=== PATIENT | male | born 1965 | race Caucasian/White ===

== ENCOUNTER 2019-03-16 10:39 | Inpatient (IN) | payer OTHER ==
[2019-03-16] MEDS ORDERED: ROCURONIUM BROMIDE 50 MG/5 ML SYRINGE ONE (12:48)
[2019-03-16] MEDS ORDERED: fentaNYL CITRATE 250 MCG/5 ML VIAL ONE (12:48)
[2019-03-16] MEDS ORDERED: PROPOFOL 20 ML ONE ×22 (12:48→19:04)
[2019-03-16] MEDS ORDERED: SUCCINYLCHOLINE CHLORIDE 200 MG/10 ML SYRINGE ONE (12:48)
[2019-03-16] MEDS ORDERED: ONDANSETRON 4 MG/2 ML VIAL ONE (12:49)
[2019-03-16] MEDS ORDERED: DEXAMETHASONE SOD PHOSPHATE 4 MG/1 ML VIAL ONE (12:49)
[2019-03-16] MEDS ORDERED: LIDOCAINE HCL/PF 2% SDV 5ML VIAL ONE (12:49)
[2019-03-16] MEDS ORDERED: HEPARIN NA (PORCINE) 5,000 UNITS/ML 1ML VIAL ONE (13:17)
[2019-03-16] MEDS ORDERED: BENZOIN TINCTURE SWABSTICK TP ONE (13:17)
[2019-03-16] MEDS ORDERED: THROMBIN (BOVINE) 5,000 UNIT VIAL TP ONE ×2 (13:18→15:48)
[2019-03-16] MEDS ORDERED: BUPIVACAINE LIPOSOME/PF (EXPAREL) 266 MG/20 ML VIAL ONE (13:22)
[2019-03-16] MEDS ORDERED: BUPIVACAINE HCL/PF 0.5% (5MG/ML) 10 ML VIAL ONE (13:22)
[2019-03-16] MEDS ORDERED: MIDAZOLAM HCL 2 MG/2 ML SINGLE DOSE VIAL ONE ×2 (13:23)
[2019-03-16] MEDS ORDERED: VANCOMYCIN 1,000 MG VIAL (RESTRICTED TO ID ONLY) IVPB ONE (14:05)
[2019-03-16] MEDS ORDERED: morphine SULFATE/PF 0.5 MG/ML (2cc Syringe - QUVA) ONE (14:16)
[2019-03-16] MEDS ORDERED: ceFAZolin SODIUM 1 GM VIAL IVPB ONE ×2 (14:50→18:40)
[2019-03-16] MEDS ORDERED: VANCOMYCIN 1,000 MG VIAL (RESTRICTED TO ID ONLY) ONE (14:57)
[2019-03-16] MEDS ORDERED: TRANEXAMIC ACID 1000 MG/10 ML VIAL ONE ×2 (14:57→18:35)
[2019-03-16] MEDS ORDERED: ceFAZolin SODIUM 1 GM VIAL ONE ×3 (14:57→20:03)
--- NOTE | 2019-03-16 15:11 | PN ---
Progress Note (short form) - Note Progress Note: 53M POD #0 s/p: 1. L1, L2, L3, L4, L5, S1 laminectomies 2. L1, L2, L3, L4, L5, S1 osteotomies (facetectomies) 3. T12-S1 posterior instrumentation 4. T12-S1 posterolateral arthrodesis 5. L5-S1 PLIF 6. Complex Durotomy repair 7. Bone allograft 8. Bone autograft 9. Bone marrow aspiration 10. Complex wound closure (30cm) -Admit to ICU post-op. -Bedrest w/head of bed flat x 48 hrs. post-op. -Pain control: per anesthesia team; NO NSAID's. -DVT PPx: -Mechanical only: SHERRY's, SCD's. -Chemical: None. -Incentive spirometry q15 min. -NPO until flatus. -Shah care. -Post-op Ancef x 3 doses. -No bending, lifting (>5 lbs), or twisting for 9-12 months. -Care per ICU & medical hospitalist Dr. Conner. -Discharge planning: f/u 7-10 days after discharge at [facility]; call for appointment; . -Will follow. Shaggy Tripp MD (Orthopaedic Surgery).
--- NOTE | 2019-03-16 15:14 | OP ---
Operative Note - Note: Operative Date: 03/16/19 Pre-Operative Diagnosis: Severity of illness: 3. 1. L1-S1 intervertebral disc disorders with radiculopathy. 2. L1-S1 spinal stenosis with neurogenic claudication. 3. Multi-level axial instability lumbar spine Operation: 1. L1, L2, L3, L4, L5, S1 laminectomies. 2. L1, L2, L3, L4, L5, S1 osteotomies (facetectomies). 3. L1-S1 posterior instrumentation. 4. T12-S1 posterolateral arthrodesis. 5. Durotomy repair. 6. Bone allograft. 7. Bone autograft. 8. Bone marrow aspiration. 9. Complex wound closure (30cm) Post-Operative Diagnosis: Same as Pre-op Surgeon: Shaggy Tripp Regrinder Operator: Maicol Tripp Anesthesiologist/EXPLOSIVE SPECIALIST: Estefania Leonard Anesthesia: General Specimens Removed: L1-L2, L3-L4, L5-S1 discs Estimated Blood Loss (mls): 1,030 Drains & Tubes with Location: 1 x superficial HemoVac Blood Volume Replaced (mls): 450 (Cell Saver) Fluid Volume Replaced (mls): 3,000 (Crystalloid) Operative Report Dictated: Yes
[2019-03-16] MEDS ORDERED: GLYCOPYRROLATE 0.2 MG/1 ML VIAL ONE (16:27)
[2019-03-16] MEDS ORDERED: NEOSTIGMINE METHYLSULFATE 0.5 MG/1 ML - 10 ML MDV ONE (16:27)
[2019-03-16] MEDS ORDERED: PROMETHAZINE HCL 25 MG/1 ML VIAL IVPUSH PRN (17:57)
[2019-03-16] MEDS ORDERED: ONDANSETRON 4 MG/2 ML VIAL IVPUSH PRN (20:54)
[2019-03-16] MEDS: ACETAMINOPHEN 1000 MG/100 ML VIAL (NON FORMULARY) IVPB PRN (21:00)
[2019-03-16] MEDS ORDERED: ACETAMINOPHEN INJECTION 100 ML IVPB ONE (21:03)
--- NOTE | 2019-03-16 21:32 | OP ---
DATE OF OPERATION: 03/16/2019 SURGEON: Shaggy Tripp MD [employer]: Maicol Tripp MD PREOPERATIVE DIAGNOSES: Previous surgery, L3-4 with multi-level disk prolapse, segmental instability, and stenosis and kyphosis, lumbar spine from T12 to S1. POSTOPERATIVE DIAGNOSES: Previous surgery, L3-4 with multi-level disk prolapse, segmental instability, and stenosis and kyphosis, lumbar spine from T12 to S1. OPERATION PERFORMED: 1. Left laminectomy, L1 to S1 with undercutting facetectomy. 2. Right laminectomy with undercutting facetectomy, T12 to S1. 3. Incidental durotomy with primary repair. 4. Posterior lumbar interbody fusion, L5-S1 with autologous bone graft. 5. Insertion of cage or interbody device, L5-S1. 6. Pedicle screw instrumentation, T12 to S1, left and right-hand side. 7. Posterolateral arthrodesis, T12 to S1 with autologous and allograft including stem cells. 8. Bone marrow aspirate concentrate, posterior ilium, 120 mL marrow. 9. Complex wound closure, 30 cm. 10. Neuromonitoring with intraoperative image intensification. ANTIBIOTICS GIVEN: Kefzol 2 g, vancomycin 1 g preop, Kefzol 1 g given at the time of seating instrumentation, Kefzol 1 g given at the end of the procedure. BLOOD LOSS: 1 L, 450 mL of concentrated cells given back to the patient. OPERATION DETAILS: Patient correctly identified, brought to the operating room, placed prone on a Sami table. All bony points padded appropriately. Eye to 10 degrees head-up position for the surgery (that is anti-Trendelenburg). Timeout was called. Intraoperative neuromonitoring was utilized, found that signals in the left lower extremity were diminished. Imaging was available for intraoperative evaluation. Prepped with Betadine scrub solution, wiped off with alcohol, DuraPrep applied, and a window drape applied to the back. The exposure was extensive from the tip of the spinous process of T11 right down to the tip of the spinous process of S2. A subperiosteal dissection performed. This was difficult at the L3-4 level. The subperiosteal dissection was taken on the bone, down the spinous process of the lamina of the facet joints, out to the tip of the transverse process at every level from T12 to S1. Complete freeing of the ala of the sacrum, soft tissue off the ala of the sacrum, left and right-hand side. Lateral fluoroscopic x-rays confirmed levels of appropriate surgical intervention. To start, a full laminectomy was performed. This extended right up the center of the laminae, right up to the end of L1 from S1 to L1, starting from caudal to cranial. Osteotomes were utilized to split the pars interarticularis inferior facets which imploded the bone inwards, and following this, an extensive superior undercutting facetectomy performed and an extensive decompression performed. As soon as this decompression was completed, the neuromonitoring team expressed elevation improvement of all the left L1 signals appropriately. This indicated excellent indications for this procedure. An extensive dural tear occurred on the right-hand side at L1, and this extended into the nerve root sleeve. A primary repair with 4-0 Nurolon was performed. This measured approximately 1-1/2 inches. This was at the L3-4 level. This was a result of the stuck-down scar tissue onto the dura as the laminectomies were performed. The primary repair was watertight except in a little area at the dural sleeve. This was impossible to suture through this because of the sleeve and the deficiency of dura in this area. A layer of Surgicel was layered over this , in fact, a triple layer of Surgicel, and this was then stuck down with fibrin glue appropriately. The Fine-Garcia osteotomy was performed at L3-4 as well. Pedicle screws from T12 to S1 were seated using anatomic guidelines, a 4.5 drill. Lateral fluoroscopic x-ray helped guide the screws under the endplates. Once all screws were seated, and these were 45 x 6.5 mm precision screws at S1, 7.5 x 45 precision screws utilized. The rods were appropriately cut to the size of the seating and lordosis. Lordosis both into the rods and the rods were seated into the tulips of the spine so that the metal fixed to the spine, not the spine to the metal. The caps were applied and tightened appropriately with a torque device. Solid fixation achieved. One crosslink applied in the mid section of the construct. The muscle was gently retracted off the transverse process. All the sponges were removed. Cell counts were correct, and the intertransverse plane was then packed with a combination of autologous bone graft mixed with expanded allograft chips and strips of demineralized bone which were soaked in bone marrow aspirate concentrate for the CD34 stem cells appropriately. This was 120 mL of marrow that was aspirated separately from the ilium appropriately. Once this had been achieved and neuromonitoring confirmed excellent position, a repeat Valsalva maneuver. This showed a very small trickle of CSF at the site, and it was at this point that the gutter of the dura and the vertebral canal was freed of blood products and the Surgicel applied to the defect space and the entire area sprinkled with fibrin glue. The muscle was trimmed appropriately for necrotic material. Closure was in 4 layers, muscle 1 Vicryl, fascia 1 Vicryl, subcutaneous 1 and 2-0 Vicryl, skin williams. Drainage: 1/8- inch Hemovac, not on suction, in the subcutaneous space. OVERALL COMMENT: Operation went well. Extensive procedure but T12 to S1 was indicated because of the extensive, multi-level disk bulges and stenosis from L1 to S1, associated kyphosis, and associated segmental instability. MD JULIANA Cobb/[id number] MTDD
--- NOTE | 2019-03-16 21:37 | CONSULT ---
Consult Consult Specialty:: IM Reason for Consultation:: post-op medical care - History of Present Illness Chief Complaint: unable to assess, sedated - History Source History Provided By: Medical Record - Alcohol/Substance Use Hx Alcohol Use: Yes (none since last saturday) - Smoking History Smoking history: Never smoked Have you smoked in the past 12 months: No Home Medications - Allergies Allergies/Adverse Reactions: Allergies Allergy/AdvReac Type Severity Reaction Status Date / Time Latex, Natural Rubber Allergy "hands Verified 03/13/19 10:21 crack if i wear gloves" No Known Drug Allergies Allergy Verified 03/13/19 10:21 - Home Medications Home Medications: Ambulatory Orders Gabapentin 300 mg PO Q8H 03/13/19 Ibuprofen [Advil -] 200 mg PO QID 03/13/19 Tizanidine HCl 2 mg PO Q8H 03/13/19 Tramadol HCl 50 mg PO Q6H 03/13/19 Family Disease History - Family Disease History Family History: Unremarkable Review of Systems - Review of Systems Constitutional: reports: No Symptoms Eyes: reports: No Symptoms HENT: reports: No Symptoms Neck: reports: No Symptoms Cardiovascular: reports: No Symptoms Respiratory: reports: No Symptoms Gastrointestinal: reports: No Symptoms Musculoskeletal: reports: Back Pain Integumentary: reports: No Symptoms Neurological: reports: No Symptoms Endocrine: reports: No Symptoms Hematology/Lymphatic: reports: No Symptoms Psychiatric: reports: No Symptoms Physical Exam Vital Signs: Vital Signs Temperature 98.3 F 03/16/19 11:49 Pulse Rate 54 L 03/16/19 11:49 Respiratory Rate 20 03/16/19 11:49 Blood Pressure 103/70 03/16/19 11:49 O2 Sat by Pulse Oximetry (%) 98 03/16/19 11:49 Constitutional: Yes: Calm Eyes: Yes: WNL HENT: Yes: WNL Neck: Yes: WNL Cardiovascular: Yes: WNL Respiratory: Yes: WNL Gastrointestinal: Yes: WNL Renal/: Yes: WNL Musculoskeletal: Yes: WNL Extremities: Yes: WNL Edema: No Peripheral Pulses WNL: Yes Integumentary: Yes: WNL Wound/Incision: Yes: Clean/Dry, Well Approximated Neurological: Yes: WNL ...Motor Strength: WNL Psychiatric: Yes: WNL Assessment/Plan 53M POD #0 s/p: 1. L1, L2, L3, L4, L5, S1 laminectomies 2. L1, L2, L3, L4, L5, S1 osteotomies (facetectomies) 3. T12-S1 posterior instrumentation 4. T12-S1 posterolateral arthrodesis 5. L5-S1 PLIF 6. Complex Durotomy repair 7. Bone allograft 8. Bone autograft 9. Bone marrow aspiration 10. Complex wound closure pain management. incentive spirometry. -GI, DVT prophylaxis. -NPO, IV fluids -awaiting labs -ICU care -will f/u in AM
[2019-03-16] MEDS ORDERED: HYDROmorphone *PCA* 10MG/50ML DISP.SYRIN ONE (22:22)
[2019-03-16] MEDS: HYDROmorphone *PCA* 10MG/50ML DISP.SYRIN PCA SCH (22:25)
[2019-03-16] MEDS: LACTATED RINGERS SOLUTION 1,000 ML IV SCH (22:25)
[2019-03-17] MEDS: CEFAZOLIN 1 GM in DEXTROSE 5%-WATER - 50 ML IVPB SCH ×4 (01:30→21:00)
[2019-03-17] MEDS ORDERED: CEFAZOLIN 1 GM in DEXTROSE 5%-WATER - 50 ML IVPB SCH ×2 (02:00→03:00)
[2019-03-17] MEDS ORDERED: HYDROmorphone *PCA* 10MG/50ML DISP.SYRIN PCA SCH (06:00)
--- NOTE | 2019-03-17 06:04 | CONSULT ---
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 The patient denies chest pain, shortness of breath, nausea/vomiting. REVIEW OF SYSTEMS: CONSTITUTIONAL: Absent: fever, chills, diaphoresis, generalized weakness, malaise, loss of appetite, weight change HEENT: Absent: rhinorrhea, nasal congestion, throat pain, throat swelling, difficulty swallowing, mouth swelling, ear pain, eye pain, visual changes CARDIOVASCULAR: Absent: chest pain, syncope, palpitations, irregular heart rate, lightheadedness , peripheral edema RESPIRATORY: Absent: cough, shortness of breath, dyspnea with exertion, orthopnea, wheezing, stridor, hemoptysis GASTROINTESTINAL: Absent: abdominal pain, abdominal distension, nausea, vomiting, diarrhea, constipation, melena, hematochezia GENITOURINARY: Absent: dysuria, frequency, urgency, hesitancy, hematuria, flank pain, genital pain MUSCULOSKELETAL: Absent: myalgia, arthralgia, joint swelling, back pain, neck pain SKIN: Absent: rash, itching, pallor HEMATOLOGIC/IMMUNOLOGIC: Absent: easy bleeding, easy bruising, lymphadenopathy, frequent infections ENDOCRINE: Absent: unexplained weight gain, unexplained weight loss, heat intolerance, cold intolerance NEUROLOGIC: Absent: headache, focal weakness or paresthesias, dizziness, unsteady gait, seizure, mental status changes, bladder or bowel incontinence PSYCHIATRIC: Absent: anxiety, depression, suicidal or homicidal ideation, hallucinations. PHYSICAL EXAMINATION Vital Signs - 24 hr 03/16/19 03/16/19 03/16/19 11:49 20:45 21:00 Temperature 98.3 F 98.4 F Pulse Rate 54 L 88 94 H Respiratory 20 14 16 Rate Blood Pressure 103/70 127/83 129/88 O2 Sat by Pulse 98 100 100 Oximetry (%) 03/16/19 03/16/19 03/16/19 21:15 21:30 21:45 Temperature Pulse Rate 56 L 52 L 54 L Respiratory 18 18 12 Rate Blood Pressure 115/85 122/71 102/52 L O2 Sat by Pulse 100 100 100 Oximetry (%) 03/16/19 03/16/19 03/16/19 22:00 22:15 22:25 Temperature 98 F Pulse Rate 50 L 72 50 L Respiratory 18 12 18 Rate Blood Pressure 97/70 104/73 97/70 O2 Sat by Pulse 100 100 100 Oximetry (%) 03/16/19 03/17/19 03/17/19 23:00 00:19 01:00 Temperature Pulse Rate 66 67 68 Respiratory 19 20 18 Rate Blood Pressure 119/80 119/80 106/81 O2 Sat by Pulse 100 Oximetry (%) 03/17/19 03/17/19 02:00 03:55 Temperature 97.8 F Pulse Rate 63 63 Respiratory 20 18 Rate Blood Pressure 125/77 99/82 O2 Sat by Pulse Oximetry (%) GENERAL: Awake, alert, and fully oriented, in no acute distress. HEAD: Normal with no signs of trauma. EYES: Pupils equal, round and reactive to light, extraocular movements intact, sclera anicteric, conjunctiva clear. No lid lag. EARS, NOSE, THROAT: Ears normal, nares patent, oropharynx clear without exudates. Moist mucous membranes. NECK: Normal range of motion, supple without lymphadenopathy, JVD, or masses. LUNGS: Breath sounds equal, clear to auscultation bilaterally. No wheezes, and no crackles. No accessory muscle use. HEART: Regular rate and rhythm, normal S1 and S2 without murmur, rub or gallop. ABDOMEN: Soft, nontender, not distended, normoactive bowel sounds, no guarding, no rebound, no masses. No hepatomegaly or splenomegaly. MUSCULOSKELETAL: Normal range of motion at all joints. No bony deformities or tenderness. No CVA tenderness. UPPER EXTREMITIES: 2+ pulses, warm, well-perfused. No cyanosis. No clubbing. Cap refill <2 seconds. No peripheral edema. LOWER EXTREMITIES: 2+ pulses, warm, well-perfused. No calf tenderness. No peripheral edema. NEUROLOGICAL: Cranial nerves II-XII intact. Normal speech. Normal gait. PSYCHIATRIC: Cooperative. Good eye contact. Appropriate mood and affect. SKIN: Warm, dry, normal turgor, no rashes or lesions noted. Laboratory Results - last 24 hr 03/16/19 03/16/19 10:57 12:20 Blood Type A POSITIVE A POSITIVE Antibody Screen Negative Active Medications Generic Name Dose Route Start Last Admin Trade Name Freq PRN Reason Stop Dose Admin Acetaminophen 1,000 mg 03/16/19 18:03 03/16/19 21:00 Ofirmev Injection - IVPB 1,000 mg Q6H PRN Administration PAIN LEVEL 6-10 Gabapentin 300 mg 03/17/19 15:15 Neurontin - PO TID CARTER Hydromorphone HCl 10 mg 03/16/19 22:28 03/16/19 22:25 Hydromorphone 10 Mg/50 Ml-Ns BUCKLE STRAP DRUM OPERATOR 03/19/19 22:25 10 mg BUCKLE STRAP DRUM OPERATOR CARTER Administration Protocol Lactated Ringer's 1,000 mls @ 125 mls/hr 03/16/19 21:00 03/16/19 22:25 Lactated Ringers Solution IV 125 mls/hr ASDIR CARTER Administration Cefazolin Sodium 1 gm/ 50 mls @ 100 mls/hr 03/17/19 02:00 Dextrose IVPB 03/18/19 01:59 Q6H CARTER Ondansetron HCl 4 mg 03/16/19 17:57 Zofran Injection IVPUSH Q6H PRN NAUSEA AND/OR VOMITING Ondansetron HCl 4 mg 03/16/19 20:54 Zofran Injection IVPUSH Q6H PRN NAUSEA AND/OR VOMITING Promethazine HCl 12.5 mg 03/16/19 17:57 Phenergan Injection - IVPUSH Q6H PRN NAUSEA-FOR RESCUE AFTER 15 MIN Tizanidine HCl 2 mg 03/17/19 15:15 Tizanidine Hcl PO TID [facility] ASSESSMENT/PLAN: 53 year old male s/p laminectomies, osteootomies POD #1 s/p laminectomies, osteootomies Patient to remain flat 48 hours post operatively as per orthopedic surgery - perioperative Ancef - Dilaudid pump for pain control; Promehtazine PRN for nausea - No NSAIDs for pain control - Encourage IS use once patient is in seated position FEN: Fluids: LR @ 125 cc/hour Electrolyte abnormalities: Monitor while NPO Nutrition: NPO until flatus PPX: Mechanical only DVT prophylaxis as per surgery Dispo: Monitor in ICU due to frequent neurochecks Dispo: We will continue to follow the patient. Thank you for this consultative opportunity. Visit type - Emergency Visit Emergency Visit: No - New Patient This patient is new to me today: Yes Date on this admission: 03/17/19 - Critical Care Critical Care patient: No ATTENDING PHYSICIAN STATEMENT I saw and evaluated the patient. I reviewed the resident's note and discussed the case with the resident. I agree with the resident's findings and plan as documented. SUBJECTIVE: OBJECTIVE: ASSESSMENT AND PLAN:
[2019-03-17 07:24] LABS: HEMATOCRIT 34.1 % (35.4-49); HEMOGLOBIN 11.5 GM/dL (11.7-16.9); MCH 28.2 pg (25.7-33.7); MCHC 33.7 g/dl (32.0-35.9); MEAN CELL VOLUME 83.7 fl (80-96); MEAN PLT VOLUME 9.3 fl (7.5-11.1); PLATELET COUNT 190 K/MM3 (134-434); RBC 4.08 M/mm3 (4.00-5.60); RDW 13.1 % (11.9-15.9); WHITE BLOOD COUNT 13.9 K/mm3 (4.0-10.0)
[2019-03-17] MEDS: ONDANSETRON 4 MG/2 ML VIAL IVPUSH PRN ×2 (07:36→18:31)
[2019-03-17 07:52] LABS: BLOOD UREA NITROGEN 11.6 mg/dL (7-18); CALCIUM 8.3 mg/dL (8.5-10.1); CREATININE 0.9 mg/dL (0.55-1.3); POTASSIUM 3.8 mmol/L (3.5-5.1)
[2019-03-17] MEDS ORDERED: ceFAZolin SODIUM 1 GM VIAL ONE ×2 (07:53→21:26)
[2019-03-17] MEDS ORDERED: DEXTROSE 5%-WATER - 50 ML IVPB ONE ×2 (07:53→21:26)
[2019-03-17 08:09] LABS: ALBUMIN 3.4 g/dl (3.4-5.0); BILIRUBIN,TOTAL 0.6 mg/dL (0.2-1); TOT PROT 5.6 g/dl (6.4-8.2)
[2019-03-17] MEDS ORDERED: PROMETHAZINE HCL 25 MG/1 ML VIAL IVPB ONE (09:16)
--- NOTE | 2019-03-17 10:14 | PN ---
Progress Note, Physician Chief Complaint: + for back pain, nausea denies chest pain, palpitations, diarrhea - Current Medication List Current Medications: Active Medications Acetaminophen (Ofirmev Injection -) 1,000 mg IVPB Q6H PRN PRN Reason: PAIN LEVEL 6-10 Last Admin: 03/16/19 21:00 Dose: 1,000 mg Gabapentin (Neurontin -) 300 mg PO TID [facility] Hydromorphone HCl (Hydromorphone 10 Mg/50 Ml-Ns) 10 mg KITCHEN RUNNER KITCHEN RUNNER [facility]; Protocol Stop: 03/19/19 22:25 Last Admin: 03/16/19 22:25 Dose: 10 mg Lactated Ringer's (Lactated Ringers Solution) 1,000 mls @ 125 mls/hr IV ASDIR [facility] Last Admin: 03/16/19 22:25 Dose: 125 mls/hr Cefazolin Sodium 1 gm/ (Dextrose) 50 mls @ 100 mls/hr IVPB Q6H [facility] Stop: 03/18/19 01:59 Last Admin: 03/17/19 08:20 Dose: 100 mls/hr Ondansetron HCl (Zofran Injection) 4 mg IVPUSH Q6H PRN PRN Reason: NAUSEA AND/OR VOMITING Last Admin: 03/17/19 07:36 Dose: 4 mg Ondansetron HCl (Zofran Injection) 4 mg IVPUSH Q6H PRN PRN Reason: NAUSEA AND/OR VOMITING Promethazine HCl (Phenergan Injection -) 12.5 mg IVPUSH Q6H PRN PRN Reason: NAUSEA-FOR RESCUE AFTER 15 MIN Tizanidine HCl (Tizanidine Hcl) 2 mg PO TID [facility] - Objective Vital Signs: Vital Signs Temperature 98 F 03/17/19 06:00 Pulse Rate 68 03/17/19 06:00 Respiratory Rate 19 03/17/19 06:00 Blood Pressure 135/87 03/17/19 06:00 O2 Sat by Pulse Oximetry (%) 100 03/16/19 23:00 Constitutional: Yes: Mild Distress Eyes: Yes: WNL HENT: Yes: WNL Neck: Yes: WNL Cardiovascular: Yes: WNL Respiratory: Yes: WNL Gastrointestinal: Yes: WNL Genitourinary: Yes: WNL Musculoskeletal: Yes: Back Pain Extremities: Yes: WNL Edema: No Peripheral Pulses WNL: Yes Integumentary: Yes: WNL Wound/Incision: Yes: Clean/Dry, Well Approximated Neurological: Yes: WNL ...Motor Strength: WNL Psychiatric: Yes: WNL Labs: CBC, BMP 03/17/19 05:45 03/17/19 05:45 Assessment/Plan 53M POD #1 s/p: 1. L1, L2, L3, L4, L5, S1 laminectomies 2. L1, L2, L3, L4, L5, S1 osteotomies (facetectomies) 3. T12-S1 posterior instrumentation 4. T12-S1 posterolateral arthrodesis 5. L5-S1 PLIF 6. Complex Durotomy repair 7. Bone allograft 8. Bone autograft 9. Bone marrow aspiration 10. Complex wound closure pain management. incentive spirometry. -peripheral neuropathy: cont neurontin. -post-op blood loss anemia: keep Hb>8. -GI, DVT prophylaxis. SHERRY's. no chemical anticoagulation. -continue bedrest -labs and meds reviewed. assessment and plan discussed with pt. -ICU care appreciated.
[2019-03-17 11:09] LABS: BASO % 0.2 % (0-2.0); LYMPH % 7.3 % (8-40); MONO % 9.2 % (3.8-10.2); NEUT % 83.3 % (42.8-82.8)
--- NOTE | 2019-03-17 11:40 | PN ---
Teaching Attending Note Name of Resident: Tree Yip ATTENDING PHYSICIAN STATEMENT I saw and evaluated the patient. I reviewed the resident's note and discussed the case with the resident. I agree with the resident's findings and plan as documented. SUBJECTIVE: Patient seen and examined in the ICU. Significant post-op pain: reports 1210. 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 Found some relief from IV Tylenol. (+) nausea No CP or SOB. Intake & Output 03/14/19 03/15/19 03/16/19 03/17/19 23:59 23:59 23:59 23:59 Intake Total 3750 1018 Output Total 1810 550 Balance 1940 468 Weight 177 lb 4 oz Last Vital Signs Temp Pulse Resp BP Pulse Ox 98 F 68 19 135/87 100 03/17/19 06:00 03/17/19 06:00 03/17/19 06:00 03/17/19 06:00 03/16/19 23:00 Active Medications Acetaminophen (Ofirmev Injection -) 1,000 mg IVPB Q6H PRN PRN Reason: PAIN LEVEL 6-10 Last Admin: 03/16/19 21:00 Dose: 1,000 mg Gabapentin (Neurontin -) 300 mg PO TID CARTER Hydromorphone HCl (Hydromorphone 10 Mg/50 Ml-Ns) 10 mg FORENSIC BALLISTICS EXPERT FORENSIC BALLISTICS EXPERT [facility]; Protocol Stop: 03/19/19 22:25 Last Admin: 03/16/19 22:25 Dose: 10 mg Lactated Ringer's (Lactated Ringers Solution) 1,000 mls @ 125 mls/hr IV ASDIR CARTER Last Admin: 03/16/19 22:25 Dose: 125 mls/hr Cefazolin Sodium 1 gm/ (Dextrose) 50 mls @ 100 mls/hr IVPB Q6H CARTER Stop: 03/18/19 01:59 Last Admin: 03/17/19 08:20 Dose: 100 mls/hr Ondansetron HCl (Zofran Injection) 4 mg IVPUSH Q6H PRN PRN Reason: NAUSEA AND/OR VOMITING Last Admin: 03/17/19 07:36 Dose: 4 mg Ondansetron HCl (Zofran Injection) 4 mg IVPUSH Q6H PRN PRN Reason: NAUSEA AND/OR VOMITING Promethazine HCl (Phenergan Injection -) 12.5 mg IVPUSH Q6H PRN PRN Reason: NAUSEA-FOR RESCUE AFTER 15 MIN Tizanidine HCl (Tizanidine Hcl) 2 mg PO TID CARTER GENERAL: Awake, alert, and fully oriented, uncomfortable due to pain HEAD: Normal with no signs of trauma. EYES: sclera anicteric, conjunctiva clear. EARS, NOSE, THROAT: Ears normal, nares patent, oropharynx clear without exudates. Moist mucous membranes. NECK: Normal range of motion, supple without lymphadenopathy, JVD, or masses. LUNGS: Breath sounds equal, clear to auscultation bilaterally. No wheezes, and no crackles. No accessory muscle use. HEART: Regular rate and rhythm, normal S1 and S2 without murmur, rub or gallop. ABDOMEN: Soft, nontender, not distended, normoactive bowel sounds, no guarding, no rebound, no masses. No hepatomegaly or splenomegaly. MUSCULOSKELETAL: Normal range of motion at all joints. No bony deformities or tenderness. No CVA tenderness. UPPER EXTREMITIES: 2+ pulses, warm, well-perfused. No cyanosis. No clubbing. Cap refill <2 seconds. No peripheral edema. LOWER EXTREMITIES: 2+ pulses, warm, well-perfused. No calf tenderness. No peripheral edema. NEUROLOGICAL: pre-existing weakness LLE 4/5, otherwise non-focal PSYCHIATRIC: Cooperative. Good eye contact. Appropriate mood and affect. SKIN: Warm, dry, normal turgor, no rashes or lesions noted. Laboratory Results - last 24 hr 03/16/19 03/16/19 03/17/19 10:57 12:20 05:45 WBC 13.9 H RBC 4.08 Hgb 11.5 L Hct 34.1 L MCV 83.7 MCH 28.2 MCHC 33.7 RDW 13.1 Plt Count 190 MPV 9.3 Absolute Neuts (auto) 11.6 H Neutrophils % 83.3 H Lymphocytes % 7.3 L Monocytes % 9.2 Eosinophils % 0.0 Basophils % 0.2 PTT (Actin FS) Sodium Potassium Chloride Carbon Dioxide Anion Gap BUN Creatinine Est GFR (CKD-EPI)AfAm Est GFR (CKD-EPI)NonAf Random Glucose Calcium Total Bilirubin AST ALT Alkaline Phosphatase Total Protein Albumin Blood Type A POSITIVE A POSITIVE Antibody Screen Negative 03/17/19 03/17/19 05:45 08:15 WBC RBC Hgb Hct MCV MCH MCHC RDW Plt Count MPV Absolute Neuts (auto) Neutrophils % Lymphocytes % Monocytes % Eosinophils % Basophils % PTT (Actin FS) 25.8 Sodium 139 Potassium 3.8 Chloride 105 Carbon Dioxide 26 Anion Gap 8 BUN 11.6 Creatinine 0.9 Est GFR (CKD-EPI)AfAm 111.83 Est GFR (CKD-EPI)NonAf 96.49 Random Glucose 118 H Calcium 8.3 L Total Bilirubin 0.6 AST 68 H ALT 33 Alkaline Phosphatase 46 Total Protein 5.6 L Albumin 3.4 Blood Type Antibody Screen ASSESSMENT/PLAN: POD #1: 1. L1, L2, L3, L4, L5, S1 laminectomies. 2. L1, L2, L3, L4, L5, S1 osteotomies (facetectomies). 3. L1-S1 posterior instrumentation. 4. T12-S1 posterolateral arthrodesis. 5. Durotomy repair. 6. Bone allograft. 7. Bone autograft. 8. Bone marrow aspiration. 9. Complex wound closure (30cm) Patient to remain flat 48 hours post operatively as per orthopedic surgery Perioperative Ancef Dilaudid pump for pain control; Promehtazine PRN for nausea No NSAIDs for pain control Encourage IS Mechanical VTE prophylaxis IVF PO as tolerated Floor when cleared by Ortho Dr Sanches
[2019-03-17] MEDS: ACETAMINOPHEN 1000 MG/100 ML VIAL (NON FORMULARY) IVPB PRN ×2 (13:00→21:45)
--- NOTE | 2019-03-17 13:19 | PN ---
Progress Note, Physician Chief Complaint: s/p T12-S1 laminectomy fusion under general anesthesia post op day one History of Present Illness: BL TLIP blocks, duramorph and ANKLE PATCH MOLDER for post op pain control - Current Medication List Current Medications: Active Medications Acetaminophen (Ofirmev Injection -) 1,000 mg IVPB Q6H PRN PRN Reason: PAIN LEVEL 6-10 Last Admin: 03/17/19 13:00 Dose: 1,000 mg Gabapentin (Neurontin -) 300 mg PO TID [facility] Hydromorphone HCl (Hydromorphone 10 Mg/50 Ml-Ns) 10 mg ANKLE PATCH MOLDER ANKLE PATCH MOLDER [facility]; Protocol Stop: 03/19/19 22:25 Last Admin: 03/16/19 22:25 Dose: 10 mg Lactated Ringer's (Lactated Ringers Solution) 1,000 mls @ 125 mls/hr IV ASDIR [facility] Last Admin: 03/16/19 22:25 Dose: 125 mls/hr Cefazolin Sodium 1 gm/ (Dextrose) 50 mls @ 100 mls/hr IVPB Q6H [facility] Stop: 03/18/19 01:59 Last Admin: 03/17/19 08:20 Dose: 100 mls/hr Ondansetron HCl (Zofran Injection) 4 mg IVPUSH Q6H PRN PRN Reason: NAUSEA AND/OR VOMITING Last Admin: 03/17/19 07:36 Dose: 4 mg Ondansetron HCl (Zofran Injection) 4 mg IVPUSH Q6H PRN PRN Reason: NAUSEA AND/OR VOMITING Promethazine HCl (Phenergan Injection -) 12.5 mg IVPUSH Q6H PRN PRN Reason: NAUSEA-FOR RESCUE AFTER 15 MIN Tizanidine HCl (Tizanidine Hcl) 2 mg PO TID [facility] - Objective Vital Signs: Vital Signs Temperature 98 F 03/17/19 06:00 Pulse Rate 68 03/17/19 06:00 Respiratory Rate 19 03/17/19 06:00 Blood Pressure 135/87 03/17/19 06:00 O2 Sat by Pulse Oximetry (%) 100 03/16/19 23:00 Constitutional: Yes: Well Nourished Cardiovascular: Yes: WNL Respiratory: Yes: WNL Gastrointestinal: Yes: WNL Labs: CBC, BMP 03/17/19 05:45 03/17/19 05:45 Assessment/Plan complained of nausea this AM which prevented him from using ANKLE PATCH MOLDER, since resolved , ANKLE PATCH MOLDER use encouraged, No other adverse effects of anesthetic, dept of anesthesia will continue to monitor ANKLE PATCH MOLDER .
--- NOTE | 2019-03-17 14:25 | PN ---
Physical Exam: SUBJECTIVE: Patient seen and examined at the bedside. States that he is doing well after his surgery, continues to have some pain and nausea. Denies headaches , chest pain, palpitations, sob, abd pain, changes in vision. States that he has a chronic weakness and numbness on his LLE but is unchanged since September. OBJECTIVE: Vital Signs Period Temp Pulse Resp BP Sys/Curran Pulse Ox Last 24 Hr 97.8 F-98.4 F 50-94 12-20 97-135/52-88 100-100 GENERAL: The patient is awake, alert, and fully oriented, in no acute distress. HEAD: Normal with no signs of trauma. EYES: PERRL, extraocular movements intact, sclera anicteric, conjunctiva clear. LUNGS: Breath sounds equal, clear to auscultation bilaterally, no wheezes, no crackles, no accessory muscle use. HEART: Regular rate and rhythm, S1, S2 without murmur, rub or gallop. ABDOMEN: Soft, nontender, nondistended, normoactive bowel sounds, no guarding, no rebound, no masses. EXTREMITIES: 2+ pulses, warm, well-perfused, no edema. NEUROLOGICAL: Cranial nerves II through XII grossly intact. Muscle strength intact bilaterally on the upper extremities. Muscle strength 5/5 on RLE, 4/5 on the LLE. FTN intact. PSYCH: Normal mood, normal affect. SKIN: Warm, dry, normal turgor, no bleeding noted from incision sites. Drain intact with minimal drainage. Laboratory Results - last 24 hr 03/17/19 03/17/19 03/17/19 05:45 05:45 08:15 WBC 13.9 H RBC 4.08 Hgb 11.5 L Hct 34.1 L MCV 83.7 MCH 28.2 MCHC 33.7 RDW 13.1 Plt Count 190 MPV 9.3 Absolute Neuts (auto) 11.6 H Neutrophils % 83.3 H Lymphocytes % 7.3 L Monocytes % 9.2 Eosinophils % 0.0 Basophils % 0.2 PTT (Actin FS) 25.8 Sodium 139 Potassium 3.8 Chloride 105 Carbon Dioxide 26 Anion Gap 8 BUN 11.6 Creatinine 0.9 Est GFR (CKD-EPI)AfAm 111.83 Est GFR (CKD-EPI)NonAf 96.49 Random Glucose 118 H Calcium 8.3 L Total Bilirubin 0.6 AST 68 H ALT 33 Alkaline Phosphatase 46 Total Protein 5.6 L Albumin 3.4 Active Medications Generic Name Dose Route Start Last Admin Trade Name Freq PRN Reason Stop Dose Admin Acetaminophen 1,000 mg 03/16/19 18:03 03/17/19 13:00 Ofirmev Injection - IVPB 1,000 mg Q6H PRN Administration PAIN LEVEL 6-10 Gabapentin 300 mg 03/17/19 15:15 Neurontin - PO TID [facility] Hydromorphone HCl 10 mg 03/16/19 22:28 03/16/19 22:25 Hydromorphone 10 Mg/50 Ml-Ns UNDERTAKER HELPER 03/19/19 22:25 10 mg UNDERTAKER HELPER [facility] Administration Protocol Lactated Ringer's 1,000 mls @ 125 mls/hr 03/16/19 21:00 03/16/19 22:25 Lactated Ringers Solution IV 125 mls/hr ASDIR [facility] Administration Cefazolin Sodium 1 gm/ 50 mls @ 100 mls/hr 03/17/19 02:00 03/17/19 08:20 Dextrose IVPB 03/18/19 01:59 100 mls/hr Q6H [facility] Administration Ondansetron HCl 4 mg 03/16/19 17:57 03/17/19 07:36 Zofran Injection IVPUSH 4 mg Q6H PRN Administration NAUSEA AND/OR VOMITING Ondansetron HCl 4 mg 03/16/19 20:54 Zofran Injection IVPUSH Q6H PRN NAUSEA AND/OR VOMITING Promethazine HCl 12.5 mg 03/16/19 17:57 Phenergan Injection - IVPUSH Q6H PRN NAUSEA-FOR RESCUE AFTER 15 MIN Tizanidine HCl 2 mg 03/17/19 15:15 Tizanidine Hcl PO TID [facility] ASSESSMENT/PLAN: Micheal Sainz is a 53 year old male with a PMHx of back pain who is POD 1 from a L1-S1 laminectomy, osteotomy, durotomy repair admitted to the ICU for continued monitoring after extensive spinal surgery and dural repair. L1-S1 Laminectomy Complex durotomy repair NEUROLOGIC - POD 1 - flat for 48 hours - no NSAIDS - neurochecks q shift - UNDERTAKER HELPER pump for pain - Tylenol 1000mg q6h prn for pain - pain control per anesthesia CARDIOLOGY - no acute issues RESPIRATORY - incentive spirometer RENAL - no acute issues GASTROINTESTINAL - no acute issues - zofran and promethazine for nausea GENITOURINARY - tay in until can ambulate INFECTIOUS DISEASE - complete ancef course ENDOCRINE - no acute issues HEMATOLOGY - continue to monitor H/H and WBC MUSCULOSKELETAL - tizanidine for muscle spasms - no bending, lifting, twisting for 9/12 months - f/u with Dr. Tripp when outpatient post discharge PSYCHIATRY - no acute issues F/E/N - LR @125 - continue to monitor electrolytes and replete as necessary - NPO until flatus LINES - R hand inserted 03/16 PROPHYLAXIS - SCDs only - no chemical prophylaxis CODE - full code DISPO - continue to monitor in ICU, f/u with recommendations of ortho team CASE DISCUSSED WITH AND PRIMARY TEAM CRISTIANA CLAUDIO DO - PGY-1 INTERNAL MEDICINE Visit type - Emergency Visit Emergency Visit: No - New Patient This patient is new to me today: Yes Date on this admission: 03/17/19 - Critical Care Critical Care patient: No
[2019-03-17] MEDS ORDERED: PT OWN MED DRAWER 7, Y5N ONE ×5 (14:29→21:27)
[2019-03-17] MEDS: GABAPENTIN 300 MG CAPSULE (FP) PO SCH ×2 (16:14→21:31)
[2019-03-17] MEDS: TIZANIDINE HCL 2 MG TABLET PO SCH ×2 (16:29→21:31)
[2019-03-17] MEDS: LACTATED RINGERS SOLUTION 1,000 ML IV SCH (21:32)
[2019-03-18] MEDS: ACETAMINOPHEN 1000 MG/100 ML VIAL (NON FORMULARY) IVPB PRN ×3 (04:18→18:19)
[2019-03-18] MEDS ORDERED: PT OWN MED DRAWER 7, Y5N ONE (05:47)
[2019-03-18] MEDS: GABAPENTIN 300 MG CAPSULE (FP) PO SCH ×3 (05:48→21:36)
[2019-03-18] MEDS: TIZANIDINE HCL 2 MG TABLET PO SCH ×4 (05:48→21:59)
[2019-03-18] MEDS: HYDROmorphone *PCA* 10MG/50ML DISP.SYRIN PCA SCH ×2 (06:13→21:21)
[2019-03-18 06:58] LABS: HEMATOCRIT 31.5 % (35.4-49); HEMOGLOBIN 10.7 GM/dL (11.7-16.9); MCH 28.5 pg (25.7-33.7); MEAN CELL VOLUME 83.8 fl (80-96); MEAN PLT VOLUME 9.6 fl (7.5-11.1); PLATELET COUNT 171 K/MM3 (134-434); RBC 3.76 M/mm3 (4.00-5.60); RDW 13.6 % (11.9-15.9); WHITE BLOOD COUNT 11.2 K/mm3 (4.0-10.0)
[2019-03-18] MEDS: LACTATED RINGERS SOLUTION 1,000 ML IV SCH ×3 (07:08→21:36)
[2019-03-18 07:16] LABS: BLOOD UREA NITROGEN 8.5 mg/dL (7-18); CALCIUM 8.3 mg/dL (8.5-10.1); CREATININE 0.8 mg/dL (0.55-1.3); MAGNESIUM 1.7 mg/dL (1.8-2.4); PHOSPHOROUS 3.1 mg/dL (2.5-4.9); POTASSIUM 3.9 mmol/L (3.5-5.1)
--- NOTE | 2019-03-18 13:25 | PN ---
Teaching Attending Note Name of Resident: Shalonda Simpson ATTENDING PHYSICIAN STATEMENT I saw and evaluated the patient. I reviewed the resident's note and discussed the case with the resident. I agree with the resident's findings and plan as documented. SUBJECTIVE: Pt seen and examined in the ICU. Nauseous with opiates, feels better with IV tylenol. No fevers or chills. OBJECTIVE: Vital Signs Period Temp Pulse Resp BP Sys/Curran Pulse Ox Last 24 Hr 98.4 F-99.5 F 54-81 10- 101-143/43-76 100 Intake & Output 03/15/19 03/16/19 03/17/19 03/18/19 23:59 23:59 23:59 23:59 Intake Total 3750 2568 1676 Output Total 1810 1450 1610 Balance 1940 1118 66 Weight 80.399 kg 77.564 kg Gen: NAD at rest Heart: RRR Lung: decreased breath sounds at the bases Abd: soft, nontender Ext: no edema Drain with minimal output CBC, BMP 03/18/19 05:05 03/18/19 05:05 Active Medications Acetaminophen (Ofirmev Injection -) 1,000 mg IVPB Q6H PRN PRN Reason: PAIN OR FEVER Last Admin: 03/18/19 12:15 Dose: 1,000 mg Gabapentin (Neurontin -) 300 mg PO TID [facility] Last Admin: 03/18/19 05:48 Dose: 300 mg Hydromorphone HCl (Hydromorphone 10 Mg/50 Ml-Ns) 10 mg ROUND CUTTER OPERATOR ROUND CUTTER OPERATOR [facility]; Protocol Stop: 03/19/19 22:25 Last Admin: 03/18/19 06:13 Dose: 10 mg Lactated Ringer's (Lactated Ringers Solution) 1,000 mls @ 125 mls/hr IV ASDIR [facility] Last Admin: 03/18/19 07:08 Dose: 125 mls/hr Ondansetron HCl (Zofran Injection) 4 mg IVPUSH Q6H PRN PRN Reason: NAUSEA AND/OR VOMITING Last Admin: 03/18/19 10:45 Dose: 4 mg Pantoprazole Sodium (Protonix Iv) 40 mg IVPUSH DAILY [facility] Promethazine HCl (Phenergan Injection -) 12.5 mg IVPUSH Q6H PRN PRN Reason: NAUSEA-FOR RESCUE AFTER 15 MIN Tizanidine HCl (Tizanidine Hcl) 2 mg PO TID [facility] Last Admin: 03/18/19 05:48 Dose: 2 mg ASSESSMENT AND PLAN: Lumbar Spinal Stenosis with Radiculopathy and Neurogenic Claudication s/p L1-S1 Laminectomies/Osteotomies/Posterior Instrumentation/Durotomy Repair - pain control - incentive spirometry - antiemetics - IVF - PO per surgery - d/c tay when OOB - monitor drain output - rehab/PT - DVT prophylaxis - can monitor on floor when ok with surgery
[2019-03-18] MEDS ORDERED: PANTOPRAZOLE SODIUM 40 MG VIAL IVPUSH SCH (13:30)
[2019-03-18] MEDS ORDERED: ONDANSETRON 4 MG/2 ML VIAL IVPUSH PRN (13:59)
--- NOTE | 2019-03-18 14:47 | PN ---
Progress Note (short form) - Note Progress Note: Pt is POD2 s/p L5-S1 PLIF. His pain is under better control today- want to keep the [employer] "just in case," though he does report that he experiences nausea with [employer] use. Will leave [employer] for now, and continue to follow
--- NOTE | 2019-03-18 15:09 | PN ---
Physical Exam: SUBJECTIVE: Patient seen and examined at the bedside. States that he is feeling well but continues to have some pain and nausea. IV tylenol works best for his pain. Zofran increased to 8mg for nausea. Patient states he is passing flatus. OBJECTIVE: Vital Signs Period Temp Pulse Resp BP Sys/Curran Pulse Ox Last 24 Hr 98.4 F-99.5 F 61-81 10-29 101-143/43-76 100 GENERAL: The patient is awake, alert, and fully oriented, in no acute distress. HEAD: Normal with no signs of trauma. EYES: PERRL, extraocular movements intact, sclera anicteric, conjunctiva clear. LUNGS: Breath sounds equal, clear to auscultation bilaterally, no wheezes, no crackles, no accessory muscle use. HEART: Regular rate and rhythm, S1, S2 without murmur, rub or gallop. ABDOMEN: Soft, nontender, nondistended, normoactive bowel sounds, no guarding, no rebound, no masses. EXTREMITIES: 2+ pulses, warm, well-perfused, no edema. NEUROLOGICAL: Cranial nerves II through XII grossly intact. Muscle strength intact bilaterally on the upper extremities. Muscle strength 5/5 on RLE, 4/5 on the LLE. FTN intact. PSYCH: Normal mood, normal affect. SKIN: Warm, dry, normal turgor, no bleeding noted from incision sites. Drain intact with minimal drainage. Laboratory Results - last 24 hr 03/18/19 03/18/19 05:05 05:05 WBC 11.2 H RBC 3.76 L Hgb 10.7 L Hct 31.5 L MCV 83.8 MCH 28.5 MCHC 34.0 RDW 13.6 Plt Count 171 MPV 9.6 Sodium 139 Potassium 3.9 Chloride 103 Carbon Dioxide 27 Anion Gap 8 BUN 8.5 Creatinine 0.8 Est GFR (CKD-EPI)AfAm 117.38 Est GFR (CKD-EPI)NonAf 101.27 Random Glucose 82 Calcium 8.3 L Phosphorus 3.1 Magnesium 1.7 L Active Medications Generic Name Dose Route Start Last Admin Trade Name Freq PRN Reason Stop Dose Admin Acetaminophen 1,000 mg 03/18/19 12:16 03/18/19 12:15 Ofirmev Injection - IVPB 1,000 mg Q6H PRN Administration PAIN OR FEVER Gabapentin 300 mg 03/17/19 15:15 03/18/19 05:48 Neurontin - PO 300 mg TID [facility] Administration Hydromorphone HCl 10 mg 03/16/19 22:28 03/18/19 06:13 Hydromorphone 10 Mg/50 Ml-Ns FIRE HYDRANT MECHANIC 03/19/19 22:25 10 mg FIRE HYDRANT MECHANIC [facility] Administration Protocol Lactated Ringer's 1,000 mls @ 125 mls/hr 03/16/19 21:00 03/18/19 07:08 Lactated Ringers Solution IV 125 mls/hr ASDIR [facility] Administration Ondansetron HCl 8 mg 03/18/19 13:59 Zofran Injection IVPUSH Q6H PRN NAUSEA AND/OR VOMITING Pantoprazole Sodium 40 mg 03/18/19 13:30 03/18/19 13:49 Protonix Iv IVPUSH 40 mg DAILY [facility] Administration Promethazine HCl 12.5 mg 03/16/19 17:57 Phenergan Injection - IVPUSH Q6H PRN NAUSEA-FOR RESCUE AFTER 15 MIN Tizanidine HCl 2 mg 03/17/19 15:15 03/18/19 05:48 Tizanidine Hcl PO 2 mg TID [facility] Administration ASSESSMENT/PLAN: Micheal Sainz is a 53 year old male with a PMHx of back pain who is POD 1 from a L1-S1 laminectomy, osteotomy, durotomy repair admitted to the ICU for continued monitoring after extensive spinal surgery and dural repair. L1-S1 Laminectomy Complex durotomy repair NEUROLOGIC - POD 2 - flat for 24hr (end at 7pm). - no NSAIDS - neurochecks q shift - FIRE HYDRANT MECHANIC pump for pain - Tylenol 1000mg q6h prn for pain - pain control per anesthesia CARDIOLOGY - no acute issues RESPIRATORY - incentive spirometer RENAL - no acute issues GASTROINTESTINAL - no acute issues - zofran and promethazine for nausea GENITOURINARY - tay in until can ambulate INFECTIOUS DISEASE - complete ancef course ENDOCRINE - no acute issues HEMATOLOGY - continue to monitor H/H and WBC MUSCULOSKELETAL - tizanidine for muscle spasms - no bending, lifting, twisting for 9/12 months - f/u with Dr. Tripp when outpatient post discharge PSYCHIATRY - no acute issues F/E/N - LR @125 - continue to monitor electrolytes and replete as necessary - Patient passing flatus, can resume diet once sitting upright. LINES - R hand inserted 03/16 PROPHYLAXIS - SCDs only - no chemical prophylaxis CODE - full code DISPO - continue to monitor in ICU, patient is stable for transfer once he is able to sit up. CASE DISCUSSED WITH AND PRIMARY TEAM Visit type - Emergency Visit Emergency Visit: No - New Patient This patient is new to me today: Yes Date on this admission: 03/18/19 - Critical Care Critical Care patient: Yes Total Critical Care Time (in minutes): 40 Critical Care Statement: The care of this patient involved high complexity decision making to prevent further life threatening deterioration of the patient 's condition and/or to evaluate & treat vital organ system(s) failure or risk of failure. ATTENDING PHYSICIAN STATEMENT I saw and evaluated the patient. I reviewed the resident's note and discussed the case with the resident. I agree with the resident's findings and plan as documented. SUBJECTIVE: OBJECTIVE: ASSESSMENT AND PLAN:
--- NOTE | 2019-03-18 20:00 | PN ---
Progress Note, Physician Chief Complaint: + for back pain, nausea denies chest pain, palpitations, diarrhea - Current Medication List Current Medications: Active Medications Acetaminophen (Ofirmev Injection -) 1,000 mg IVPB Q6H PRN PRN Reason: PAIN OR FEVER Last Admin: 03/18/19 18:19 Dose: 1,000 mg Gabapentin (Neurontin -) 300 mg PO TID [facility] Last Admin: 03/18/19 14:00 Dose: 300 mg Hydromorphone HCl (Hydromorphone 10 Mg/50 Ml-Ns) 10 mg METAL DRILL OPERATOR METAL DRILL OPERATOR [facility]; Protocol Stop: 03/19/19 22:25 Last Admin: 03/18/19 06:13 Dose: 10 mg Lactated Ringer's (Lactated Ringers Solution) 1,000 mls @ 125 mls/hr IV ASDIR [facility] Last Admin: 03/18/19 15:00 Dose: 125 mls/hr Ondansetron HCl (Zofran Injection) 8 mg IVPUSH Q6H PRN PRN Reason: NAUSEA AND/OR VOMITING Pantoprazole Sodium (Protonix Iv) 40 mg IVPUSH DAILY [facility] Last Admin: 03/18/19 13:49 Dose: 40 mg Promethazine HCl (Phenergan Injection -) 12.5 mg IVPUSH Q6H PRN PRN Reason: NAUSEA-FOR RESCUE AFTER 15 MIN Tizanidine HCl (Tizanidine Hcl) 2 mg PO TID [facility] Last Admin: 03/18/19 14:00 Dose: 2 mg - Objective Vital Signs: Vital Signs Temperature 98.6 F 03/18/19 18:00 Pulse Rate 64 03/18/19 18:00 Respiratory Rate 19 03/18/19 18:00 Blood Pressure 116/53 L 03/18/19 18:00 O2 Sat by Pulse Oximetry (%) 100 03/18/19 09:00 Constitutional: Yes: Well Nourished, No Distress, Calm Eyes: Yes: WNL HENT: Yes: WNL Neck: Yes: WNL Cardiovascular: Yes: WNL Respiratory: Yes: WNL Gastrointestinal: Yes: Hypoactive Bowel Sounds Genitourinary: Yes: WNL Musculoskeletal: Yes: Back Pain Extremities: Yes: WNL Edema: No Peripheral Pulses WNL: Yes Integumentary: Yes: WNL Wound/Incision: Yes: Clean/Dry, Well Approximated Neurological: Yes: WNL ...Motor Strength: WNL Psychiatric: Yes: WNL Labs: CBC, BMP 03/18/19 05:05 03/18/19 05:05 Assessment/Plan 53M POD #2 s/p: 1. L1, L2, L3, L4, L5, S1 laminectomies 2. L1, L2, L3, L4, L5, S1 osteotomies (facetectomies) 3. T12-S1 posterior instrumentation 4. T12-S1 posterolateral arthrodesis 5. L5-S1 PLIF 6. Complex Durotomy repair 7. Bone allograft 8. Bone autograft 9. Bone marrow aspiration 10. Complex wound closure pain management. incentive spirometry. -peripheral neuropathy: cont neurontin. -post-op blood loss anemia: keep Hb>8. -GI, DVT prophylaxis. SHERRY's. no chemical anticoagulation. -continue bedrest -labs and meds reviewed. assessment and plan discussed with pt. -ICU care appreciated. pt is medically stable to transfer to med/surg floor.
--- NOTE | 2019-03-18 20:20 | PATH ---
Surgical Pathology Report Patient Name: TYREL BURRIS [facility]. Rec. #: [id number] /Age/Gender: 1965 (Age: 53) / M Account: [id number] Location: [facility] INSULATING MACHINE OPERATOR Taken: 03/16/2019 Received: 03/17/2019 Reported: 03/18/2019 Physicians: Shaggy Tripp M.D. Specimen(s) Received L5-S1 DISC Clinical History Spinal stenosis Final Diagnosis DISC, L5-S1, LAMINECTOMY: INTERVERTEBRAL DISC TISSUE AND BONE. Electronically Signed Yvonne Richardson M.D. Gross Description Received in formalin labeled "L5-S1 disc," is a 1.4 x 1.2 x 0.3 cm aggregate of lamas fragments of fibrocartilaginous tissue. The specimen is submitted in toto in one cassette. /03/17/201903/17/2019
[2019-03-18] MEDS ORDERED: PROMETHAZINE HCL 25 MG/1 ML VIAL IVPUSH PRN (21:01)
[2019-03-18] MEDS: ONDANSETRON 4 MG/2 ML VIAL IVPUSH PRN (21:37)
[2019-03-19] MEDS: ACETAMINOPHEN 1000 MG/100 ML VIAL (NON FORMULARY) IVPB PRN ×3 (00:22→19:51)
[2019-03-19] MEDS: LACTATED RINGERS SOLUTION 1,000 ML IV SCH ×4 (00:32→21:57)
[2019-03-19] MEDS: TIZANIDINE HCL 2 MG TABLET PO SCH ×3 (06:01→21:56)
[2019-03-19] MEDS: GABAPENTIN 300 MG CAPSULE (FP) PO SCH ×3 (06:01→21:56)
[2019-03-19 08:25] LABS: HEMATOCRIT 30.3 % (35.4-49); HEMOGLOBIN 10.3 GM/dL (11.7-16.9); MCH 28.3 pg (25.7-33.7); MCHC 33.9 g/dl (32.0-35.9); MEAN CELL VOLUME 83.4 fl (80-96); MEAN PLT VOLUME 8.9 fl (7.5-11.1); PLATELET COUNT 185 K/MM3 (134-434); RBC 3.63 M/mm3 (4.00-5.60); RDW 13.6 % (11.9-15.9); WHITE BLOOD COUNT 10.8 K/mm3 (4.0-10.0)
[2019-03-19 08:54] LABS: BLOOD UREA NITROGEN 7.2 mg/dL (7-18); CALCIUM 8.1 mg/dL (8.5-10.1); CREATININE 0.7 mg/dL (0.55-1.3); POTASSIUM 3.8 mmol/L (3.5-5.1)
[2019-03-19] MEDS: PANTOPRAZOLE SODIUM 40 MG VIAL IVPUSH SCH (09:15)
[2019-03-19] MEDS: HYDROmorphone *PCA* 10MG/50ML DISP.SYRIN PCA SCH ×2 (09:44→19:52)
--- NOTE | 2019-03-19 10:46 | PN ---
Progress Note, Physician Chief Complaint: + for back pain, nausea denies chest pain, palpitations, diarrhea - Current Medication List Current Medications: Active Medications Gabapentin (Neurontin -) 300 mg PO TID [facility] Last Admin: 03/19/19 06:01 Dose: 300 mg Hydromorphone HCl (Hydromorphone 10 Mg/50 Ml-Ns) 10 mg SUPERINTENDENT MAINTENANCE SUPERINTENDENT MAINTENANCE [facility]; Protocol Stop: 03/19/19 22:25 Last Admin: 03/19/19 09:44 Dose: 10 mg Lactated Ringer's (Lactated Ringers Solution) 1,000 mls @ 125 mls/hr IV ASDIR [facility] Last Admin: 03/19/19 09:55 Dose: 125 mls/hr Magnesium Chloride (Slow-Mag -) 128 mg PO DAILY [facility] Ondansetron HCl (Zofran Injection) 8 mg IVPUSH Q6H PRN PRN Reason: NAUSEA AND/OR VOMITING Last Admin: 03/18/19 21:37 Dose: 8 mg Pantoprazole Sodium (Protonix Iv) 40 mg IVPUSH DAILY [facility] Last Admin: 03/19/19 09:15 Dose: 40 mg Tizanidine HCl (Tizanidine Hcl) 2 mg PO TID [facility] Last Admin: 03/19/19 06:01 Dose: 2 mg - Objective Vital Signs: Vital Signs Temperature 99.4 F 03/19/19 06:23 Pulse Rate 82 03/19/19 10:14 Respiratory Rate 16 03/19/19 10:14 Blood Pressure 133/78 03/19/19 10:14 O2 Sat by Pulse Oximetry (%) 100 03/18/19 23:51 Constitutional: Yes: Well Nourished, No Distress Eyes: Yes: WNL HENT: Yes: WNL Neck: Yes: WNL Cardiovascular: Yes: WNL Respiratory: Yes: WNL Gastrointestinal: Yes: WNL Genitourinary: Yes: WNL Musculoskeletal: Yes: Back Pain, Joint Stiffness Extremities: Yes: WNL Edema: No Integumentary: Yes: WNL Wound/Incision: Yes: Clean/Dry, Well Approximated Neurological: Yes: WNL ...Motor Strength: WNL Psychiatric: Yes: WNL Labs: CBC, BMP 03/19/19 07:56 03/19/19 08:00 Assessment/Plan 53M POD #3 s/p: 1. L1, L2, L3, L4, L5, S1 laminectomies 2. L1, L2, L3, L4, L5, S1 osteotomies (facetectomies) 3. T12-S1 posterior instrumentation 4. T12-S1 posterolateral arthrodesis 5. L5-S1 PLIF 6. Complex Durotomy repair 7. Bone allograft 8. Bone autograft 9. Bone marrow aspiration 10. Complex wound closure pain management. incentive spirometry. -peripheral neuropathy: cont neurontin. -post-op blood loss anemia: keep Hb>8. -hypomagnesemia: supplemented. -GI, DVT prophylaxis. SHERRY's. no chemical anticoagulation. -PT/OT/OOB as tolerated -labs and meds reviewed. assessment and plan discussed with pt. labs and meds reviewed. phone calls answered throughout the day. 30 min
--- NOTE | 2019-03-19 11:23 | PN ---
Progress Note (short form) - Note Progress Note: Anesthesiology Pain Service 53 y.o. man POD#3 s/p T12-S1 PLIF under GA and TLIP blocks with post-op QUICK PRINT OPERATOR. Pt. was transferred out of ICU onto regular floor. He does complain of pain; he states that IV Acetaminophen helps significantly but he is also requiring the QUICK PRINT OPERATOR. Unfortunately, he is also experiencing increased n/v due to the QUICK PRINT OPERATOR and being NPO. Otherwise, VSS, no other issues. POD#3 s/p PLIF with post-op pain, n/v. I discussed with the pt. a plan of advancing the diet and then transitioning to PO analgesia instead of QUICK PRINT OPERATOR; he may find the pain meds easier to tolerate once he is eating. I do need to confirm with the surgical team regarding NPO status first before doing this. For now, will continue current regimen until diet advanced.
[2019-03-19] MEDS ORDERED: PT OWN MED DRAWER 7, Y5N ONE ×2 (13:17→21:51)
[2019-03-19] MEDS: MAGNESIUM CL 64 MG TABLET.SA PO SCH (13:47)
[2019-03-20] MEDS: HYDROmorphone *PCA* 10MG/50ML DISP.SYRIN PCA SCH (01:40)
[2019-03-20] MEDS: ACETAMINOPHEN 1000 MG/100 ML VIAL (NON FORMULARY) IVPB PRN ×2 (01:58→20:02)
[2019-03-20] MEDS: TIZANIDINE HCL 2 MG TABLET PO SCH ×3 (06:04→21:31)
[2019-03-20] MEDS: GABAPENTIN 300 MG CAPSULE (FP) PO SCH ×3 (06:04→21:31)
[2019-03-20 08:23] LABS: BLOOD UREA NITROGEN 5.2 mg/dL (7-18); CALCIUM 8.1 mg/dL (8.5-10.1); CREATININE 0.6 mg/dL (0.55-1.3)
[2019-03-20 08:33] LABS: BASO % 0.5 % (0-2.0); EOS % 2.3 % (0-4.5); HEMATOCRIT 28.6 % (35.4-49); HEMOGLOBIN 9.9 GM/dL (11.7-16.9); LYMPH % 11.3 % (8-40); MCH 28.6 pg (25.7-33.7); MCHC 34.6 g/dl (32.0-35.9); MEAN CELL VOLUME 82.7 fl (80-96); MEAN PLT VOLUME 9.4 fl (7.5-11.1); MONO % 13.5 % (3.8-10.2); NEUT % 72.4 % (42.8-82.8); PLATELET COUNT 204 K/MM3 (134-434); RBC 3.46 M/mm3 (4.00-5.60); RDW 13.2 % (11.9-15.9); WHITE BLOOD COUNT 8.4 K/mm3 (4.0-10.0)
[2019-03-20] MEDS ORDERED: MAGNESIUM CL 64 MG TABLET.SA PO SCH (10:00)
[2019-03-20] MEDS: PANTOPRAZOLE SODIUM 40 MG VIAL IVPUSH SCH (10:18)
[2019-03-20] MEDS ORDERED: PT OWN MED DRAWER 7, Y5N ONE ×4 (10:22→21:25)
[2019-03-20] MEDS: MAGNESIUM CL 64 MG TABLET.SA PO SCH (10:23)
[2019-03-20] MEDS: ONDANSETRON 4 MG/2 ML VIAL IVPUSH PRN (11:58)
--- NOTE | 2019-03-20 12:27 | PN ---
Progress Note (short form) - Note Progress Note: POD#4 Patient doing well. C/O nausea and incisional pain. No headache No leg pain. Temp Apyrexial Blood picture as per chart Has walked in the room At present sitting eating a light lunch. Mental status Normal Wound dry Applied new dressings Drain removed Shah catheter to be removed. Neuro Fully intact motor and sensory. ASSESS Doing well following major L1 to S1 decompression and stabilization. PLAN Continue analgesics Pt mobilize D/c planning to rehab
[2019-03-20] MEDS: LACTATED RINGERS SOLUTION 1,000 ML IV SCH ×2 (14:40→22:00)
--- NOTE | 2019-03-20 14:59 | PN ---
Progress Note, Physician Chief Complaint: + for back pain, nausea denies chest pain, palpitations, diarrhea - Current Medication List Current Medications: Active Medications Acetaminophen (Ofirmev Injection -) 1,000 mg IVPB Q6H PRN PRN Reason: PAIN 5-9 Last Admin: 03/20/19 01:58 Dose: 1,000 mg Gabapentin (Neurontin -) 300 mg PO TID [facility] Last Admin: 03/20/19 13:33 Dose: 300 mg Hydromorphone HCl (Hydromorphone 10 Mg/50 Ml-Ns) 10 mg MACHINE HEEL SPRAYER MACHINE HEEL SPRAYER [facility]; Protocol Stop: 03/26/19 19:14 Last Admin: 03/20/19 01:40 Dose: 10 mg Lactated Ringer's (Lactated Ringers Solution) 1,000 mls @ 125 mls/hr IV ASDIR [facility] Last Admin: 03/20/19 14:40 Dose: 125 mls/hr Magnesium Chloride (Slow-Mag -) 128 mg PO DAILY [facility] Last Admin: 03/20/19 10:23 Dose: 128 mg Ondansetron HCl (Zofran Injection) 8 mg IVPUSH Q6H PRN PRN Reason: NAUSEA AND/OR VOMITING Last Admin: 03/20/19 11:58 Dose: 8 mg Pantoprazole Sodium (Protonix Iv) 40 mg IVPUSH DAILY [facility] Last Admin: 03/20/19 10:18 Dose: 40 mg Tizanidine HCl (Tizanidine Hcl) 2 mg PO TID [facility] Last Admin: 03/20/19 13:33 Dose: 2 mg - Objective Vital Signs: Vital Signs Temperature 98.2 F 03/20/19 13:00 Pulse Rate 74 03/20/19 13:00 Respiratory Rate 20 03/20/19 13:00 Blood Pressure 132/90 03/20/19 13:00 O2 Sat by Pulse Oximetry (%) 94 L 03/20/19 09:00 Constitutional: Yes: Well Nourished, No Distress Eyes: Yes: WNL HENT: Yes: WNL Neck: Yes: WNL Cardiovascular: Yes: WNL Respiratory: Yes: WNL Gastrointestinal: Yes: WNL Genitourinary: Yes: WNL Musculoskeletal: Yes: Back Pain Extremities: Yes: WNL Edema: No Peripheral Pulses WNL: Yes Integumentary: Yes: WNL Wound/Incision: Yes: Clean/Dry, Well Approximated Neurological: Yes: WNL ...Motor Strength: WNL Psychiatric: Yes: WNL Labs: CBC, BMP 03/20/19 05:15 03/20/19 05:15 Assessment/Plan 53M POD #4 s/p: 1. L1, L2, L3, L4, L5, S1 laminectomies 2. L1, L2, L3, L4, L5, S1 osteotomies (facetectomies) 3. T12-S1 posterior instrumentation 4. T12-S1 posterolateral arthrodesis 5. L5-S1 PLIF 6. Complex Durotomy repair 7. Bone allograft 8. Bone autograft 9. Bone marrow aspiration 10. Complex wound closure pain management. incentive spirometry. -peripheral neuropathy: cont neurontin. -post-op blood loss anemia: keep Hb>8. -hypomagnesemia: supplemented. -GI, DVT prophylaxis. SHERRY's. no chemical anticoagulation. -PT/OT/OOB as tolerated -labs and meds reviewed. assessment and plan discussed with pt. labs and meds reviewed. phone calls answered throughout the day. Pt is awaiting rehab placement. 30 min
[2019-03-21] MEDS: ACETAMINOPHEN 1000 MG/100 ML VIAL (NON FORMULARY) IVPB PRN ×3 (02:10→17:02)
[2019-03-21] MEDS: HYDROmorphone *PCA* 10MG/50ML DISP.SYRIN PCA SCH (02:14)
[2019-03-21] MEDS: ONDANSETRON 4 MG/2 ML VIAL IVPUSH PRN ×3 (02:20→14:12)
[2019-03-21] MEDS: TIZANIDINE HCL 2 MG TABLET PO SCH ×3 (05:43→22:32)
[2019-03-21] MEDS: GABAPENTIN 300 MG CAPSULE (FP) PO SCH ×3 (05:43→22:32)
[2019-03-21] MEDS ORDERED: PT OWN MED DRAWER 7, Y5N ONE ×4 (09:51→22:30)
[2019-03-21] MEDS: PANTOPRAZOLE SODIUM 40 MG VIAL IVPUSH SCH (10:14)
[2019-03-21] MEDS: MAGNESIUM CL 64 MG TABLET.SA PO SCH (10:15)
--- NOTE | 2019-03-21 13:05 | PN ---
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 [facility]; Protocol Stop: 03/26/19 19:14 Last Admin: 03/21/19 02:14 Dose: 10 mg Lactated Ringer's (Lactated Ringers Solution) 1,000 mls @ 125 mls/hr IV ASDIR [facility] Last Admin: 03/20/19 22:00 Dose: 125 mls/hr Magnesium Chloride (Slow-Mag -) 128 mg PO DAILY [facility] Last Admin: 03/21/19 10:15 Dose: 128 mg Ondansetron HCl (Zofran Injection) 8 mg IVPUSH Q6H PRN PRN Reason: NAUSEA AND/OR VOMITING Last Admin: 03/21/19 08:16 Dose: 8 mg Pantoprazole Sodium (Protonix Iv) 40 mg IVPUSH DAILY [facility] Last Admin: 03/21/19 10:14 Dose: 40 mg Tizanidine HCl (Tizanidine Hcl) 2 mg PO TID [facility] Last Admin: 03/21/19 05:43 Dose: 2 mg - Objective Vital Signs: Vital Signs Temperature 98.9 F 03/21/19 06:00 Pulse Rate 74 03/21/19 06:00 Respiratory Rate 20 03/21/19 09:00 Blood Pressure 142/96 03/21/19 06:00 O2 Sat by Pulse Oximetry (%) 95 03/21/19 09:00 Constitutional: Yes: Well Nourished, No Distress Eyes: Yes: WNL HENT: Yes: WNL Neck: Yes: WNL Cardiovascular: Yes: WNL Respiratory: Yes: WNL Gastrointestinal: Yes: WNL Genitourinary: Yes: WNL Musculoskeletal: Yes: Back Pain Extremities: Yes: WNL Edema: No Peripheral Pulses WNL: Yes Integumentary: Yes: WNL Wound/Incision: Yes: Clean/Dry, Well Approximated Neurological: Yes: WNL Psychiatric: Yes: WNL Labs: CBC, BMP 03/20/19 05:15 03/20/19 05:15 Assessment/Plan 53M POD #5 s/p: 1. L1, L2, L3, L4, L5, S1 laminectomies 2. L1, L2, L3, L4, L5, S1 osteotomies (facetectomies) 3. T12-S1 posterior instrumentation 4. T12-S1 posterolateral arthrodesis 5. L5-S1 PLIF 6. Complex Durotomy repair 7. Bone allograft 8. Bone autograft 9. Bone marrow aspiration 10. Complex wound closure pain management. incentive spirometry. pain is well controlled today. -peripheral neuropathy: cont neurontin. -post-op blood loss anemia: keep Hb>8. -hypomagnesemia: supplemented. -GI, DVT prophylaxis. SHERRY's. no chemical anticoagulation. -PT/OT/OOB as tolerated -labs and meds reviewed. assessment and plan discussed with pt. labs and meds reviewed. phone calls answered throughout the day. Pt is awaiting rehab placement. Auth pending. hopefully on Saturday. 30 min
[2019-03-21] MEDS: DOCUSATE SODIUM 100 MG CAPSULE (FP) PO SCH ×2 (15:39→22:32)
[2019-03-21] MEDS: POLYETHYLENE GLYCOL 3350 119 GM BTL PO SCH (15:39)
[2019-03-21] MEDS: LACTATED RINGERS SOLUTION 1,000 ML IV SCH (22:33)
[2019-03-22] MEDS: ACETAMINOPHEN 1000 MG/100 ML VIAL (NON FORMULARY) IVPB PRN ×3 (01:12→20:57)
[2019-03-22] MEDS ORDERED: HYDROmorphone *PCA* 10MG/50ML DISP.SYRIN ONE (04:56)
[2019-03-22] MEDS: ONDANSETRON 4 MG/2 ML VIAL IVPUSH PRN (05:58)
[2019-03-22] MEDS: GABAPENTIN 300 MG CAPSULE (FP) PO SCH ×3 (06:01→21:15)
[2019-03-22] MEDS: TIZANIDINE HCL 2 MG TABLET PO SCH ×3 (06:01→21:15)
[2019-03-22] MEDS: PANTOPRAZOLE SODIUM 40 MG VIAL IVPUSH SCH (09:08)
[2019-03-22] MEDS: MAGNESIUM CL 64 MG TABLET.SA PO SCH (09:08)
[2019-03-22] MEDS: DOCUSATE SODIUM 100 MG CAPSULE (FP) PO SCH ×2 (09:08→21:15)
[2019-03-22] MEDS: POLYETHYLENE GLYCOL 3350 119 GM BTL PO SCH (09:09)
[2019-03-22] MEDS ORDERED: PT OWN MED DRAWER 7, Y5N ONE ×2 (13:28→21:02)
--- NOTE | 2019-03-22 13:53 | PN ---
Progress Note (short form) - Note Progress Note: POD6 Patient doing well. C/O nausea and incisional pain. No headache No leg pain. Temp Apyrexial Blood picture as per chart Has walked in the room At present sitting eating a light lunch. Mental status Normal Wound mild serosang drainage Applied new dressings Drain removed Shah catheter to be removed. Neuro Fully intact motor and sensory. ASSESS Doing well following major L1 to S1 decompression and stabilization. PLAN Continue analgesics Pt mobilize D/c planning home or rehab
[2019-03-22] MEDS: LACTATED RINGERS SOLUTION 1,000 ML IV SCH ×2 (15:30→22:21)
--- NOTE | 2019-03-22 18:05 | PN ---
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 [facility]; Protocol Stop: 03/26/19 19:14 Last Admin: 03/21/19 02:14 Dose: 10 mg Lactated Ringer's (Lactated Ringers Solution) 1,000 mls @ 125 mls/hr IV ASDIR [facility] Last Admin: 03/22/19 15:30 Dose: 125 mls/hr Magnesium Chloride (Slow-Mag -) 128 mg PO DAILY [facility] Last Admin: 03/22/19 09:08 Dose: 128 mg Ondansetron HCl (Zofran Injection) 8 mg IVPUSH Q6H PRN PRN Reason: NAUSEA AND/OR VOMITING Last Admin: 03/22/19 05:58 Dose: 8 mg Pantoprazole Sodium (Protonix Iv) 40 mg IVPUSH DAILY [facility] Last Admin: 03/22/19 09:08 Dose: 40 mg Polyethylene Glycol (Miralax (For Daily Use) -) 17 gm PO DAILY [facility] Last Admin: 03/22/19 09:09 Dose: 17 gm Tizanidine HCl (Tizanidine Hcl) 2 mg PO TID [facility] Last Admin: 03/22/19 13:29 Dose: 2 mg - Objective Vital Signs: Vital Signs Temperature 97.8 F 03/22/19 10:03 Pulse Rate 60 03/22/19 10:03 Respiratory Rate 18 03/22/19 10:03 Blood Pressure 135/89 03/22/19 10:03 O2 Sat by Pulse Oximetry (%) 95 03/21/19 09:00 Constitutional: Yes: Well Nourished, No Distress Eyes: Yes: WNL HENT: Yes: WNL Neck: Yes: WNL Cardiovascular: Yes: WNL Respiratory: Yes: WNL Gastrointestinal: Yes: WNL Genitourinary: Yes: WNL Musculoskeletal: Yes: Back Pain Wound/Incision: Yes: Clean/Dry, Well Approximated Neurological: Yes: WNL Psychiatric: Yes: WNL Labs: CBC, BMP 03/20/19 05:15 03/20/19 05:15 Assessment/Plan 53M POD #6 s/p: 1. L1, L2, L3, L4, L5, S1 laminectomies 2. L1, L2, L3, L4, L5, S1 osteotomies (facetectomies) 3. T12-S1 posterior instrumentation 4. T12-S1 posterolateral arthrodesis 5. L5-S1 PLIF 6. Complex Durotomy repair 7. Bone allograft 8. Bone autograft 9. Bone marrow aspiration 10. Complex wound closure pain management. incentive spirometry. pain is well controlled today. -peripheral neuropathy: cont neurontin. -post-op blood loss anemia: keep Hb>8. -hypomagnesemia: supplemented. -GI, DVT prophylaxis. SHERRY's. no chemical anticoagulation. -PT/OT/OOB as tolerated -labs and meds reviewed. assessment and plan discussed with pt. labs and meds reviewed. phone calls answered throughout the day. Pt is awaiting rehab placement. Auth pending. hopefully tomorrow. 30 min
[2019-03-22] MEDS: HYDROmorphone *PCA* 10MG/50ML DISP.SYRIN PCA SCH ×2 (19:44→20:44)
[2019-03-23] MEDS: ACETAMINOPHEN 1000 MG/100 ML VIAL (NON FORMULARY) IVPB PRN ×3 (03:18→18:03)
[2019-03-23] MEDS: TIZANIDINE HCL 2 MG TABLET PO SCH ×3 (05:49→21:11)
[2019-03-23] MEDS: GABAPENTIN 300 MG CAPSULE (FP) PO SCH ×3 (05:49→21:11)
[2019-03-23] MEDS ORDERED: SODIUM PHOSPHATE/NA BIPHOS 133 ML ENEMA RC ONE (08:00)
[2019-03-23] MEDS: ONDANSETRON 4 MG/2 ML VIAL IVPUSH PRN (08:05)
[2019-03-23 08:41] LABS: BASO % 1.1 % (0-2.0); EOS % 4.2 % (0-4.5); HEMATOCRIT 26.1 % (35.4-49); HEMOGLOBIN 8.9 GM/dL (11.7-16.9); LYMPH % 24.2 % (8-40); MCH 28.3 pg (25.7-33.7); MCHC 34.2 g/dl (32.0-35.9); MEAN CELL VOLUME 82.8 fl (80-96); MEAN PLT VOLUME 8.3 fl (7.5-11.1); NEUT % 52.5 % (42.8-82.8); PLATELET COUNT 301 K/MM3 (134-434); RBC 3.15 M/mm3 (4.00-5.60); RDW 13.7 % (11.9-15.9); WHITE BLOOD COUNT 6.6 K/mm3 (4.0-10.0)
[2019-03-23 08:45] LABS: BLOOD UREA NITROGEN 9.4 mg/dL (7-18); CALCIUM 8.2 mg/dL (8.5-10.1); CREATININE 0.6 mg/dL (0.55-1.3); POTASSIUM 3.7 mmol/L (3.5-5.1)
[2019-03-23] MEDS ORDERED: PT OWN MED DRAWER 7, Y5N ONE ×3 (09:10→21:09)
[2019-03-23] MEDS: DOCUSATE SODIUM 100 MG CAPSULE (FP) PO SCH ×2 (09:45→21:11)
[2019-03-23] MEDS: POLYETHYLENE GLYCOL 3350 119 GM BTL PO SCH (09:45)
[2019-03-23] MEDS: MAGNESIUM CL 64 MG TABLET.SA PO SCH (09:45)
[2019-03-23] MEDS: PANTOPRAZOLE 40 MG TABLET (FP) PO SCH (11:17)
[2019-03-23] MEDS: oxyCODONE HCL 5 MG TABLET PO PRN ×4 (11:17→23:15)
--- NOTE | 2019-03-23 17:25 | PN ---
Progress Note, Physician Chief Complaint: + for back pain denies chest pain, palpitations, diarrhea - Current Medication List Current Medications: Active Medications Acetaminophen (Ofirmev Injection -) 1,000 mg IVPB Q6H PRN PRN Reason: PAIN 5-9 Last Admin: 03/23/19 11:15 Dose: 1,000 mg Docusate Sodium (Colace -) 100 mg PO BID [facility] Last Admin: 03/23/19 09:45 Dose: 100 mg Gabapentin (Neurontin -) 300 mg PO TID [facility] Last Admin: 03/23/19 14:13 Dose: 300 mg Lactated Ringer's (Lactated Ringers Solution) 1,000 mls @ 125 mls/hr IV ASDIR [facility] Last Admin: 03/22/19 22:21 Dose: 125 mls/hr Magnesium Chloride (Slow-Mag -) 128 mg PO DAILY [facility] Last Admin: 03/23/19 09:45 Dose: 128 mg Ondansetron HCl (Zofran Injection) 8 mg IVPUSH Q6H PRN PRN Reason: NAUSEA AND/OR VOMITING Last Admin: 03/23/19 08:05 Dose: 8 mg Oxycodone HCl (Roxicodone -) 10 mg PO Q4H PRN PRN Reason: PAIN LEVEL 6-10 Last Admin: 03/23/19 14:51 Dose: 10 mg Pantoprazole Sodium (Protonix -) 40 mg PO DAILY [facility] Last Admin: 03/23/19 11:17 Dose: 40 mg Polyethylene Glycol (Miralax (For Daily Use) -) 17 gm PO DAILY [facility] Last Admin: 03/23/19 09:45 Dose: 17 gm Tizanidine HCl (Tizanidine Hcl) 2 mg PO TID [facility] Last Admin: 03/23/19 14:13 Dose: 2 mg - Objective Vital Signs: Vital Signs Temperature 98.1 F 03/23/19 14:49 Pulse Rate 74 03/23/19 14:49 Respiratory Rate 18 03/23/19 14:49 Blood Pressure 144/91 03/23/19 14:49 O2 Sat by Pulse Oximetry (%) 92 L 03/23/19 09:00 Constitutional: Yes: Well Nourished, No Distress Eyes: Yes: WNL HENT: Yes: WNL Neck: Yes: WNL Cardiovascular: Yes: WNL Respiratory: Yes: WNL ...Rectal Exam: Yes: WNL Genitourinary: Yes: WNL Musculoskeletal: Yes: Back Pain Extremities: Yes: WNL Edema: No Peripheral Pulses WNL: Yes Integumentary: Yes: WNL Wound/Incision: Yes: Clean/Dry, Well Approximated Neurological: Yes: WNL Psychiatric: Yes: WNL Labs: CBC, BMP 03/23/19 07:30 03/23/19 07:30 Assessment/Plan 53M POD #7 s/p: 1. L1, L2, L3, L4, L5, S1 laminectomies 2. L1, L2, L3, L4, L5, S1 osteotomies (facetectomies) 3. T12-S1 posterior instrumentation 4. T12-S1 posterolateral arthrodesis 5. L5-S1 PLIF 6. Complex Durotomy repair 7. Bone allograft 8. Bone autograft 9. Bone marrow aspiration 10. Complex wound closure pain management. incentive spirometry. pain is better controlled. -peripheral neuropathy: cont neurontin. -post-op blood loss anemia: keep Hb>8. -hypomagnesemia: supplemented. -GI, DVT prophylaxis. SHERRY's. no chemical anticoagulation. -PT/OT/OOB as tolerated -labs and meds reviewed. assessment and plan discussed with pt and family at bedside. labs and meds reviewed. phone calls answered throughout the day. Pt is awaiting rehab placement. Auth pending. 30 min
[2019-03-23] MEDS: LACTATED RINGERS SOLUTION 1,000 ML IV SCH ×2 (21:23→23:18)
[2019-03-24] MEDS: ACETAMINOPHEN 1000 MG/100 ML VIAL (NON FORMULARY) IVPB PRN ×2 (00:30→06:20)
[2019-03-24] MEDS: oxyCODONE HCL 5 MG TABLET PO PRN ×3 (03:12→13:13)
[2019-03-24] MEDS ORDERED: PT OWN MED DRAWER 7, Y5N ONE ×3 (05:18→13:08)
[2019-03-24] MEDS: TIZANIDINE HCL 2 MG TABLET PO SCH ×2 (06:17→13:13)
[2019-03-24] MEDS: GABAPENTIN 300 MG CAPSULE (FP) PO SCH ×2 (06:17→13:14)
[2019-03-24] MEDS ORDERED: KETOROLAC TROMETHAMINE 30 MG/1 ML VIAL IVPUSH ONE (06:45)
[2019-03-24] MEDS: POLYETHYLENE GLYCOL 3350 119 GM BTL PO SCH (09:27)
[2019-03-24] MEDS: MAGNESIUM CL 64 MG TABLET.SA PO SCH (09:28)
[2019-03-24] MEDS: DOCUSATE SODIUM 100 MG CAPSULE (FP) PO SCH (09:28)
[2019-03-24] MEDS: PANTOPRAZOLE 40 MG TABLET (FP) PO SCH (09:28)
[2019-03-24 11:55] VITALS: BMI 28.8
[2019-03-24 13:24] VITALS: BP 130/84; PULSE 96; TEMP 98.9
--- NOTE | 2019-03-24 17:25 | DS ---
Physical Examination Vital Signs: Vital Signs Temperature 98.9 F 03/24/19 13:20 Pulse Rate 96 H 03/24/19 13:20 Respiratory Rate 18 03/24/19 13:20 Blood Pressure 130/84 03/24/19 13:20 O2 Sat by Pulse Oximetry (%) 98 03/24/19 09:00 Constitutional: Yes: Well Nourished Eyes: Yes: WNL HENT: Yes: WNL Neck: Yes: WNL Cardiovascular: Yes: WNL Respiratory: Yes: WNL Gastrointestinal: Yes: WNL Renal/: Yes: WNL Musculoskeletal: Yes: Back Pain Extremities: Yes: WNL Edema: No Peripheral Pulses WNL: Yes Integumentary: Yes: WNL Wound/Incision: Yes: Clean/Dry, Well Approximated, Dressing Dry and Intact Neurological: Yes: WNL ...Motor Strength: WNL Psychiatric: Yes: WNL Labs: CBC, BMP 03/23/19 07:30 03/23/19 07:30 Discharge Summary Reason For Visit: SPINAL STENOSIS, LUMBAR Condition: Stable - Instructions Diet, Activity, Other Instructions: Regular Diet Disposition: LONG-TERM FACILITY - Home Medications Comprehensive Discharge Medication List: Ambulatory Orders Gabapentin 300 mg PO Q8H 03/13/19 Ibuprofen [Advil -] 200 mg PO QID 03/13/19 Tizanidine HCl 2 mg PO Q8H 03/13/19 Tramadol HCl 50 mg PO Q6H 03/13/19
== END 2019-03-24 18:32 | DRG 304 ==
LOC: JSAMEDAYSX 10:39 → JICU 22:09 → J6S 03-18 21:01
PROVIDERS: ADMIT Orthopaedic Surgery Orthopaedic Surgery of the Spine; ATTEND Orthopaedic Surgery Orthopaedic Surgery of the Spine
PROC: 0SG1071 Fusion of 2 or more Lumbar Vertebral Joints with Autologous Tissue Substitute, Posterior Approach, Posterior Column, Open Approach (ICD-10-PCS; 2019-03-16)
PROC: 0SG30AJ Fusion of Lumbosacral Joint with Interbody Fusion Device, Posterior Approach, Anterior Column, Open Approach (ICD-10-PCS; 2019-03-16)
PROC: 0SG3071 Fusion of Lumbosacral Joint with Autologous Tissue Substitute, Posterior Approach, Posterior Column, Open Approach (ICD-10-PCS; 2019-03-16)
PROC: 0RGA0AJ Fusion of Thoracolumbar Vertebral Joint with Interbody Fusion Device, Posterior Approach, Anterior Column, Open Approach (ICD-10-PCS; 2019-03-16)
PROC: 0RGA071 Fusion of Thoracolumbar Vertebral Joint with Autologous Tissue Substitute, Posterior Approach, Posterior Column, Open Approach (ICD-10-PCS; 2019-03-16)
PROC: 07DR3ZX Extraction of Iliac Bone Marrow, Percutaneous Approach, Diagnostic (ICD-10-PCS; 2019-03-16)
PROC: 00QT0ZZ Repair Spinal Meninges, Open Approach (ICD-10-PCS; 2019-03-16)
PROC: 00UT0JZ Supplement Spinal Meninges with Synthetic Substitute, Open Approach (ICD-10-PCS; 2019-03-16)
PROC: 0SG10AJ Fusion of 2 or more Lumbar Vertebral Joints with Interbody Fusion Device, Posterior Approach, Anterior Column, Open Approach (ICD-10-PCS; principal; 2019-03-16 12:00)
DX: M48.061 Spinal stenosis, lumbar region without neurogenic claudication (principal); M48.05 Spinal stenosis, thoracolumbar region; D62 Acute posthemorrhagic anemia; G62.9 Polyneuropathy, unspecified; E83.42 Hypomagnesemia; M40.209 Unspecified kyphosis, site unspecified; G96.11 Dural tear; M48.07 Spinal stenosis, lumbosacral region
CPT/HCPCS: 36415; 76000-TC-FY; 80048; 80053; 83735; 84100; 85025; 85027; 85730; 86850; 86900; 86901; 88304-TC; 94760; 97116-GP; 97162-GP; J0131; J1644